=== PATIENT | female | born 1975 | race Caucasian/White ===

== ENCOUNTER 2017-10-13 16:57 | Inpatient (IN) | payer BC ==
[2017-10-13] MEDS ORDERED: Misoprostol 200 MCG Tab PO PRN (17:10)
[2017-10-13] MEDS ORDERED: Carboprost Tromethamine 250 MCG/1 ML Amp IM PRN (17:10)
[2017-10-13] MEDS ORDERED: Terbutaline 1 MG/ML SDV SUBCUT PRN (17:10)
[2017-10-13] MEDS ORDERED: Water For Irrigation,Sterile 1,000 ML Container IRR PRN (17:10)
[2017-10-13] MEDS ORDERED: Lidocaine 1% 50 ML MDV INJECT PRN (17:10)
[2017-10-13] MEDS ORDERED: Sodium Chloride 0.9% 2.5 ML Syringe FLUSH PRN (17:10)
[2017-10-13] MEDS ORDERED: Methylergonovine 0.2 MG/1 ML Amp IM PRN (17:10)
[2017-10-13] MEDS ORDERED: Sodium Chloride 0.9% 10 ML Syringe FLUSH PRN (17:10)
[2017-10-13] MEDS ORDERED: Nalbuphine 10 MG/1 ML Vial IVPUSH PRN (17:10)
[2017-10-13] MEDS ORDERED: Oxytocin/0.9 % Sodium Chloride 30 UNIT/500 ML BAG IV SCH (17:15)
[2017-10-13] MEDS ORDERED: Ampicillin 2 GM in Sodium Chloride 0.9% 100 ML IV ONE (17:30)
[2017-10-13] MEDS ORDERED: Misoprostol 25 MCG (1/4 of 100 MCG) Tab PO SCH (18:00)
[2017-10-13] MEDS ORDERED: Misoprostol 25 MCG (1/4 of 100 MCG) Tab VAG SCH (18:00)
[2017-10-13] MEDS: Labetalol 100 MG Tab PO SCH (18:32)
--- NOTE | 2017-10-13 18:48 | PCM.LDHP ---
L&D History of Present Illness - General Date of Service: 10/13/17 Admit Problem/Dx: Patient Status Order with Admit Dx/Problem 10/13/17 17:11 Patient Status [ADT] Routine Admission Diagnosis/Problem Admission Diagnosis/Problem 10/13/17 18:42 42 yo EDC 10/27/2017 38wks today. Gest HTN, Aneg, R-NI, GBS pos. IOL Source of Information: Patient History Limitations: Reports: No Limitations - History of Present Illness Improves with: Reports: None Worsens with: Reports: None Associated Symptoms: Reports: N - Related Data Allergies/Adverse Reactions: Allergies Allergy/AdvReac Type Severity Reaction Status Date / Time No Known Allergies Allergy Verified 10/13/17 17:10 Home Medications: Home Meds Albuterol [Ventolin HFA] 2 puff INH Q6H PRN 09/13/16 [History] Aspirin [Adult Low Dose Aspirin EC] 81 mg PO DAILY 09/13/16 [History] Labetalol [Normodyne] 100 mg PO BID 09/13/16 [History] PNV95/Ferrous Fumarate/FA [ Tablet] 1 tab PO DAILY 09/13/16 [History] Ferrous Gluconate [Iron] 08/11/17 [History] Folic Acid 08/11/17 [History] Past Medical History - Past Health History Medical/Surgical History: Denies Medical/Surgical History HEENT History: Reports: None Cardiovascular History: Reports: Hypertension Respiratory History: Reports: Asthma Other Respiratory History: Exercised induced asthma Gastrointestinal History: Reports: None Genitourinary History: Reports: None 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: Musculoskeletal History: Reports: None Neurological History: Reports: None Psychiatric History: Reports: None Endocrine/Metabolic History: Reports: Obesity/BMI 30+ Hematologic History: Reports: None Immunologic History: Reports: None Oncologic (Cancer) History: Reports: None Dermatologic History: Reports: Seborrheic Dermatitis - Infectious Disease History Infectious Disease History: Reports: Chicken Pox, Measles - Past Surgical History Head Surgeries/Procedures: Reports: None HEENT Surgical History: Reports: None Cardiovascular Surgical History: Reports: None Respiratory Surgical History: Reports: None GI Surgical History: Reports: None Female Surgical History: Reports: None Endocrine Surgical History: Reports: None Neurological Surgical History: Reports: None Musculoskeletal Surgical History: Reports: None Oncologic Surgical History: Reports: None Social & Family History - Family History Family Medical History: Noncontributory - Tobacco Use Smoking Status *Q: Never Smoker - Recreational Drug Use Recreational Drug Use: No Drug Use in Last 12 Months: No H&P Review of Systems - Review of Systems: Review Of Systems: See Below General: Reports: No Symptoms HEENT: Reports: No Symptoms Pulmonary: Reports: No Symptoms Cardiovascular: Reports: No Symptoms Gastrointestinal: Reports: No Symptoms Genitourinary: Reports: No Symptoms Musculoskeletal: Reports: No Symptoms Skin: Reports: No Symptoms Psychiatric: Reports: No Symptoms Neurological: Reports: No Symptoms Hematologic/Lymphatic: Reports: No Symptoms Immunologic: Reports: No Symptoms L&D Exam - Exam Exam: See Below - Vital Signs Vital Signs: Last Vital Signs Temp Pulse 80 10/13/17 18:32 Resp BP 179/83 H 10/13/17 18:32 Pulse Ox Weight: 93.894 kg - OB Specific Movement: Active Heart Tones: Present Heart Rate (FHR) Variability: Moderate (6-25 bmp) Presentation: Vertex - Jorge Score Jorge Score Cervix Position: Midposition Jorge Score Consistency: Soft Jorge Score Effacement: >80% Jorge Score Dilation: 1-2 cm Jorge Score 's Station: -2 Jorge Score Total: 8 - Exam General: Alert, Oriented, Cooperative, Mild Distress Lungs: Normal Respiratory Effort GI/Abdominal Exam: Soft, Non-Tender Rectal Exam: Deferred Genitourinary: Normal bimanual exam Back Exam: Full Range of Motion Extremities: Normal Range of Motion, Non-Tender, No Pedal Edema, Normal Capillary Refill Skin: Warm, Dry, Intact Neurological: Reflexes Equal Bilateral, Normal Gait, Normal Speech, Normal Tone Psychiatric: Alert, Normal Affect, Normal Mood - Patient Data Lab Results Last 24 hrs: Laboratory Results - last 24 hr 10/13/17 Range/Units 17:46 WBC 10.75 (4.0-11.0) K/uL RBC 3.71 L (4.30-5.90) M/uL Hgb 11.2 L (12.0-16.0) g/dL Hct 32.8 L (36.0-46.0) % MCV 88.4 (80.0-98.0) fL MCH 30.2 (27.0-32.0) pg MCHC 34.1 (31.0-37.0) g/dL RDW Std Deviation 44.9 (28.0-62.0) fl RDW Coeff of Caro 14 (11.0-15.0) % Plt Count 235 (150-400) K/uL MPV 9.00 (7.40-12.00) fL Nucleated RBC % 0.0 /100WBC Nucleated RBCs # 0 K/uL Result Diagrams: 10/13/17 17:46 - Problem List (1) Supervision of normal IUP (intrauterine ) in primigravida SNOMED Code(s): 20862635, 055211801, 296923300 ICD Code: Z34.00 - ENCNTR FOR SUPRVSN OF NORMAL FIRST , UNSP TRIMESTER Status: Acute Priority: High Current Visit: Yes Qualifiers: Trimester: third trimester Qualified Code(s): Z34.03 - Encounter for supervision of normal first , third trimester (2) Hypertension affecting in third trimester SNOMED Code(s): 642262778 ICD Code: O16.3 - UNSPECIFIED MATERNAL HYPERTENSION, THIRD TRIMESTER Status : Acute Priority: High Current Visit: Yes (3) AMA (advanced maternal age) primigravida 35+ SNOMED Code(s): 22840870 ICD Code: O09.519 - SUPERVISION OF ELDERLY PRIMIGRAVIDA, UNSPECIFIED TRIMESTER Status: Acute Priority: High Current Visit: Yes Qualifiers: Trimester: third trimester Qualified Code(s): O09.513 - Supervision of elderly primigravida, third trimester Problem List Initiated/Reviewed/Updated: Yes Orders Last 24hrs: Active Orders 24 hr Category Date Time Status Patient Status [ADT] Routine ADT 10/13/17 17:11 Active Bedrest Bathroom Privileges [RC] ASDIRECTED Care 10/13/17 17:11 Active Communication Order [RC] ASDIRECTED Care 10/13/17 17:11 Active Communication Order [RC] ASDIRECTED Care 10/13/17 17:11 Active Communication Order [RC] ASDIRECTED Care 10/13/17 17:11 Active Heart Tones [RC] CONTINUOUS Care 10/13/17 17:11 Active Non Stress Test [RC] PER UNIT ROUTINE Care 10/13/17 17:11 Active May Shower [RC] ASDIRECTED Care 10/13/17 17:11 Active Notify Provider [RC] PRN Care 10/13/17 17:11 Active Notify Provider [RC] PRN Care 10/13/17 17:11 Active Notify Provider [RC] PRN Care 10/13/17 17:11 Active Notify Provider [RC] STAT Care 10/13/17 17:11 Active Oxygen Therapy [RC] ASDIRECTED Care 10/13/17 17:11 Active Up ad Yesenia [RC] ASDIRECTED Care 10/13/17 17:11 Active Vaginal Exam [RC] PRN Care 10/13/17 17:11 Active Vaginal Exam [RC] PRN Care 10/13/17 17:11 Active Vital Signs [RC] PER UNIT ROUTINE Care 10/13/17 17:11 Active Vital Signs [RC] PER UNIT ROUTINE Care 10/13/17 17:11 Active Clear Liquid Diet [DIET] Diet 10/13/17 Dinner Active Regular Diet [DIET] Diet 10/14/17 Breakfast Ordered TYPE AND SCREEN [BBK] Routine Lab 10/13/17 17:46 Received Ampicillin 1 gm Med 10/13/17 21:30 Active Sodium Chloride 0.9% [Normal Saline] 50 ml IV Q4H Butorphanol [Stadol] Med 10/13/17 17:10 Active 1 mg IVPUSH Q1H PRN Carboprost Tromethamine [Hemabate DS] Med 10/13/17 17:10 Active 250 mcg IM ASDIRECTED PRN Labetalol [Normodyne] Med 10/13/17 18:30 Active 100 mg PO BID Lactated Ringers [Ringers, Lactated] 1,000 ml Med 10/13/17 17:15 Active IV ASDIRECTED Lidocaine 1% [Xylocaine 1%] Med 10/13/17 17:10 Active 50 ml INJECT .ONCE PRN Methylergonovine [Methergine] Med 10/13/17 17:10 Active 0.2 mg IM ASDIRECTED PRN Misoprostol [Cytotec] Med 10/13/17 17:10 Active 200 mcg PO .ONCE PRN Misoprostol [Cytotec] Med 10/13/17 18:00 Active 25 mcg PO .ONCE Misoprostol [Cytotec] Med 10/13/17 22:00 Active 25 mcg PO Q4H PRN Misoprostol [Cytotec] Med 10/13/17 18:00 Active 25 mcg VAG .ONCE Misoprostol [Cytotec] Med 10/13/17 22:00 Active 25 mcg VAG Q4H PRN Nalbuphine [Nubain] Med 10/13/17 17:10 Active 10 mg IVPUSH Q1H PRN Oxytocin/0.9 % Sodium Chloride [Oxytocin 30 Unit/500 ML Med 10/13/17 17:15 Active -NS] 30 unit in 500 ml IV TITRATE Sodium Chloride 0.9% [Saline Flush] Med 10/13/17 17:10 Active 10 ml FLUSH ASDIRECTED PRN Sodium Chloride 0.9% [Saline Flush] Med 10/13/17 17:10 Active 2.5 ml FLUSH ASDIRECTED PRN Terbutaline [Brethine] Med 10/13/17 17:10 Active 0.25 mg SUBCUT ASDIRECTED PRN Water For Irrigation,Sterile [Sterile Water for Med 10/13/17 17:10 Active Irrigation] 1,000 ml IRR ASDIRECTED PRN Scalp Electrode [WOMSER] Per Unit Routine Oth 10/13/17 17:11 Ordered Medication Administration Instruction [OM.PC] Q3H Oth 10/13/17 17:15 Ordered Peripheral IV Insertion Adult [OM.PC] Routine Oth 10/13/17 17:11 Ordered Resuscitation Status Routine Resus Stat 10/13/17 17:10 Ordered Medication Orders Butorphanol Tartrate (Stadol) 1 mg IVPUSH Q1H PRN PRN Reason: Pain Carboprost Tromethamine (Hemabate Ds) 250 mcg IM ASDIRECTED PRN PRN Reason: Post Hemorrhage Ampicillin Sodium 1 gm/ Sodium (Chloride) 50 mls @ 100 mls/hr IV Q4H [place] Lactated Ringer's (Ringers, Lactated) 1,000 mls @ 150 mls/hr IV ASDIRECTED [place] Oxytocin/Sodium Chloride (Oxytocin 30 Unit/500 Ml-Ns) 30 unit in 500 mls @ 999 mls/hr IV TITRATE [place] Labetalol HCl (Normodyne) 100 mg PO BID [facility] Last Admin: 10/13/17 18:32 Dose: 100 mg Lidocaine HCl (Xylocaine 1%) 50 ml INJECT .ONCE PRN PRN Reason: Laceration repair Methylergonovine Maleate (Methergine) 0.2 mg IM ASDIRECTED PRN PRN Reason: Post Hemorrhage Misoprostol (Cytotec) 200 mcg PO .ONCE PRN PRN Reason: Post Hemorrhage Misoprostol (Cytotec) 25 mcg VAG .ONCE [place] Misoprostol (Cytotec) 25 mcg VAG Q4H PRN PRN Reason: Cervical Ripening Misoprostol (Cytotec) 25 mcg PO .ONCE [place] Misoprostol (Cytotec) 25 mcg PO Q4H PRN PRN Reason: Cervical Ripening Nalbuphine HCl (Nubain) 10 mg IVPUSH Q1H PRN PRN Reason: Pain (severe 7-10) Sodium Chloride (Saline Flush) 10 ml FLUSH ASDIRECTED PRN PRN Reason: Keep Vein Open Sodium Chloride (Saline Flush) 2.5 ml FLUSH ASDIRECTED PRN PRN Reason: Keep Vein Open Sterile Water (Sterile Water For Irrigation) 1,000 ml IRR ASDIRECTED PRN PRN Reason: delivery Terbutaline Sulfate (Brethine) 0.25 mg SUBCUT ASDIRECTED PRN PRN Reason: Tacysystole Assessment/Plan Comment:: IOL A: 42 yo EDC 10/27/2017 38wks today. Gest HTN, Aneg, R-NI, GBS pos. IOL P: Admit to L&D, cytotec to pitocin, Amp for GBS pos when in labor, aldomet for elevated BP, Anticipate
[2017-10-13] MEDS ORDERED: hydrOXYzine Pamoate 25 MG Cap PO PRN (19:24)
[2017-10-13] MEDS ORDERED: Ampicillin 1 GM in Sodium Chloride 0.9% 50 ML IV SCH (21:30)
[2017-10-13] MEDS ORDERED: Misoprostol 25 MCG (1/4 of 100 MCG) Tab PO PRN (22:00)
[2017-10-13] MEDS ORDERED: Misoprostol 25 MCG (1/4 of 100 MCG) Tab VAG PRN (22:00)
[2017-10-14] MEDS: Lactated Ringers 1,000 ML IV SCH ×2 (01:35→10:42)
[2017-10-14] MEDS ORDERED: Loperamide 2 MG Cap PO PRN (01:45)
[2017-10-14] MEDS: Ondansetron 4 MG/2 ML SDV IVPUSH ONE ×2 (02:00→08:54)
[2017-10-14] MEDS ORDERED: Oxytocin/Lactated Ringers 30 UNIT/500 ML BAG IV SCH (02:00)
[2017-10-14] MEDS: Labetalol 100 MG/20 ML MDV IVPUSH SCH ×2 (02:04→04:34)
[2017-10-14] MEDS ORDERED: Oxytocin/0.9 % Sodium Chloride 30 UNIT/500 ML BAG IV SCH (04:15)
[2017-10-14] MEDS: Butorphanol 1 MG/ML SDV IVPUSH PRN ×2 (08:45→10:07)
[2017-10-14] MEDS ORDERED: Ondansetron 4 MG/2 ML SDV ONE (08:51)
[2017-10-14] MEDS ORDERED: Ampicillin 2 GM AdvVial IV ONE (10:03)
[2017-10-14] MEDS ORDERED: Ropivacaine 0 ML ONE (10:51)
[2017-10-14] MEDS ORDERED: fentaNYL 100 MCG/2 ML SDV ONE ×2 (10:51→11:26)
[2017-10-14] MEDS ORDERED: Ropivacaine 0.2% 2 MG/ML 20 ML SDV ONE (10:51)
[2017-10-14] MEDS ORDERED: Ropivacaine 100 ML ONE (11:27)
--- NOTE | 2017-10-14 11:46 | PCM.PREANE ---
Preanesthetic Assessment - Procedure Proposed Procedure: Labor Epidural analgesia - Anesthesia/Transfusion/Family Hx Anesthesia History: No Prior Anesthesia Family History of Anesthesia Reaction: No Transfusion History: No Prior Transfusion(s) - Review of Systems General: No Symptoms Pulmonary: Wheezing Cardiovascular: Edema (HTN ) Gastrointestinal: No Symptoms Neurological: No Symptoms Other: Reports: None - Physical Assessment NPO Status Date: 10/14/17 NPO Status Time: 11:43 (per policy) Blood Pressure: 189/94 Vital Signs: Last Vital Signs Temp Pulse 80 10/14/17 04:34 Resp BP 189/94 H 10/14/17 04:34 Pulse Ox Height: 5 ft 6 in Weight: 207 lb ASA Class: 2 Mental Status: Alert & Oriented x3 Airway Class: Mallampati = 3 Dentition: Reports: Normal Dentition Thyro-Mental Finger Breadths: 3 Mouth Opening Finger Breadths: 3 ROM/Head Extension: Full Lungs: Clear to Auscultation, Normal Respiratory Effort Cardiovascular: Regular Rate, Regular Rhythm - Lab Values: Laboratory Last Values WBC 10.75 K/uL (4.0-11.0) 10/13/17 17:46 RBC 3.71 M/uL (4.30-5.90) L 10/13/17 17:46 Hgb 11.2 g/dL (12.0-16.0) L 10/13/17 17:46 Hct 32.8 % (36.0-46.0) L 10/13/17 17:46 MCV 88.4 fL (80.0-98.0) 10/13/17 17:46 MCH 30.2 pg (27.0-32.0) 10/13/17 17:46 MCHC 34.1 g/dL (31.0-37.0) 10/13/17 17:46 RDW Std Deviation 44.9 fl (28.0-62.0) 10/13/17 17:46 RDW Coeff of Caro 14 % (11.0-15.0) 10/13/17 17:46 Plt Count 235 K/uL (150-400) 10/13/17 17:46 MPV 9.00 fL (7.40-12.00) 10/13/17 17:46 Nucleated RBC % 0.0 /100WBC 10/13/17 17:46 Nucleated RBCs # 0 K/uL 10/13/17 17:46 Blood Type A NEGATIVE 10/13/17 17:46 Antibody Screen NEGATIVE 10/13/17 17:46 - Allergies Allergies/Adverse Reactions: Allergies Allergy/AdvReac Type Severity Reaction Status Date / Time No Known Allergies Allergy Verified 10/13/17 17:10 - Blood Blood Available: Yes Product(s) Available: PRBC - Anesthesia Plan Pre-Op Medication Ordered: None - Acknowledgements Anesthesia Type Planned: Epidural Pt an Appropriate Candidate for the Planned Anesthesia: Yes Alternatives and Risks of Anesthesia Discussed w Pt/Guardian: Yes Pt/Guardian Understands and Agrees with Anesthesia Plan: Yes PreAnesthesia Questionnaire - Past Health History Medical/Surgical History: Denies Medical/Surgical History HEENT History: Reports: None Cardiovascular History: Reports: Hypertension Respiratory History: Reports: Asthma Other Respiratory History: Exercised induced asthma Gastrointestinal History: Reports: None Genitourinary History: Reports: 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: Musculoskeletal History: Reports: None Neurological History: Reports: None Psychiatric History: Reports: None Endocrine/Metabolic History: Reports: Obesity/BMI 30+ Hematologic History: Reports: None Immunologic History: Reports: None Oncologic (Cancer) History: Reports: None Dermatologic History: Reports: Seborrheic Dermatitis - Infectious Disease History Infectious Disease History: Reports: Chicken Pox, Measles - Past Surgical History Head Surgeries/Procedures: Reports: None HEENT Surgical History: Reports: None Cardiovascular Surgical History: Reports: None Respiratory Surgical History: Reports: None GI Surgical History: Reports: None Female Surgical History: Reports: None Endocrine Surgical History: Reports: None Neurological Surgical History: Reports: None Musculoskeletal Surgical History: Reports: None Oncologic Surgical History: Reports: None - SUBSTANCE USE Smoking Status *Q: Never Smoker Tobacco Use Within Last Twelve Months: No Recreational Drug Use History: No - HOME MEDS Home Medications: Home Meds Albuterol [Ventolin HFA] 2 puff INH Q6H PRN 09/13/16 [History] Aspirin [Adult Low Dose Aspirin EC] 81 mg PO DAILY 09/13/16 [History] Labetalol [Normodyne] 100 mg PO BID 09/13/16 [History] PNV95/Ferrous Fumarate/FA [ Tablet] 1 tab PO DAILY 09/13/16 [History] Ferrous Gluconate [Iron] 08/11/17 [History] Folic Acid 08/11/17 [History] - CURRENT (IN HOUSE) MEDS Current Meds: Current Medications Butorphanol Tartrate (Stadol) 1 mg IVPUSH Q1H PRN PRN Reason: Pain Last Admin: 10/14/17 10:07 Dose: 1 mg Carboprost Tromethamine (Hemabate Ds) 250 mcg IM ASDIRECTED PRN PRN Reason: Post Hemorrhage Ampicillin Sodium 1 gm/ Sodium (Chloride) 50 mls @ 100 mls/hr IV Q4H [place] Lactated Ringer's (Ringers, Lactated) 1,000 mls @ 150 mls/hr IV ASDIRECTED [place] Last Admin: 10/14/17 10:42 Dose: 150 mls/hr Oxytocin/Sodium Chloride (Oxytocin 30 Unit/500 Ml-Ns) 30 unit in 500 mls @ 999 mls/hr IV TITRATE [place] Oxytocin/Sodium Chloride (Oxytocin 30 Unit/500 Ml-Ns) 30 unit in 500 mls @ 2 mls/hr IV TITRATE [place]; 2 MUNITS/MIN PRN Reason: Protocol Last Admin: 10/14/17 04:20 Dose: 2 munits/min, 2 mls/hr Labetalol HCl (Normodyne) 100 mg PO BID [place] Last Admin: 10/13/17 18:32 Dose: 100 mg Lidocaine HCl (Xylocaine 1%) 50 ml INJECT .ONCE PRN PRN Reason: Laceration repair Loperamide HCl (Imodium) 4 mg PO Q6H PRN PRN Reason: Diarrhea Last Admin: 10/14/17 02:08 Dose: 4 mg Methylergonovine Maleate (Methergine) 0.2 mg IM ASDIRECTED PRN PRN Reason: Post Hemorrhage Misoprostol (Cytotec) 200 mcg PO .ONCE PRN PRN Reason: Post Hemorrhage Misoprostol (Cytotec) 25 mcg VAG .ONCE [place] Last Admin: 10/13/17 19:29 Dose: 25 mcg Misoprostol (Cytotec) 25 mcg VAG Q4H PRN PRN Reason: Cervical Ripening Last Admin: 10/14/17 00:03 Dose: 25 mcg Misoprostol (Cytotec) 25 mcg PO .ONCE [place] Last Admin: 10/13/17 19:29 Dose: 25 mcg Misoprostol (Cytotec) 25 mcg PO Q4H PRN PRN Reason: Cervical Ripening Last Admin: 10/14/17 00:04 Dose: 25 mcg Nalbuphine HCl (Nubain) 10 mg IVPUSH Q1H PRN PRN Reason: Pain (severe 7-10) Sodium Chloride (Saline Flush) 10 ml FLUSH ASDIRECTED PRN PRN Reason: Keep Vein Open Sodium Chloride (Saline Flush) 2.5 ml FLUSH ASDIRECTED PRN PRN Reason: Keep Vein Open Sterile Water (Sterile Water For Irrigation) 1,000 ml IRR ASDIRECTED PRN PRN Reason: delivery Terbutaline Sulfate (Brethine) 0.25 mg SUBCUT ASDIRECTED PRN PRN Reason: Tacysystole Discontinued Medications Ampicillin Sodium (Ampicillin) Confirm Administered Dose 2 gm IV .STK-MED ONE Stop: 10/14/17 10:04 Fentanyl (Sublimaze) Confirm Administered Dose 300 mcg .ROUTE .STK-MED ONE Stop: 10/14/17 10:52 Fentanyl (Sublimaze) Confirm Administered Dose 100 mcg .ROUTE .STK-MED ONE Stop: 10/14/17 11:27 Hydroxyzine Pamoate (Vistaril) 50 mg PO ONETIME PRN PRN Reason: Sleep Last Admin: 10/13/17 20:37 Dose: 50 mg Ampicillin Sodium 2 gm/ Sodium (Chloride) 100 mls @ 200 mls/hr IV ONETIME ONE Stop: 10/13/17 17:59 Last Admin: 10/14/17 10:39 Dose: 200 mls/hr Ropivacaine (Naropin 0.2%) Confirm Administered Dose 100 mls @ as directed .ROUTE .STK-MED ONE Stop: 10/14/17 10:52 Ropivacaine (Naropin 0.2%) Confirm Administered Dose 100 mls @ as directed .ROUTE .STK-MED ONE Stop: 10/14/17 11:28 Labetalol HCl (Normodyne) 20 mg IVPUSH Q4H [place] PRN Reason: Protocol Stop: 10/14/17 05:46 Last Admin: 10/14/17 04:34 Dose: 20 mg Ondansetron HCl (Zofran) 4 mg IVPUSH ONETIME ONE Stop: 10/14/17 01:49 Last Admin: 10/14/17 08:54 Dose: 4 mg Ondansetron HCl (Zofran) Confirm Administered Dose 4 mg .ROUTE .ST-MED ONE Stop: 10/14/17 08:52 Ropivacaine (Naropin 0.2%) Confirm Administered Dose 20 ml .ROUTE .[facility]-MED ONE Stop: 10/14/17 10:52
[2017-10-14] MEDS ORDERED: Ibuprofen 800 MG Tab PO PRN (15:21)
[2017-10-14] MEDS ORDERED: oxyCODONE 5 MG Tab PO PRN (15:21)
[2017-10-14] MEDS ORDERED: Docusate Sodium 100 MG Cap PO PRN (15:21)
[2017-10-14] MEDS ORDERED: Benzocaine/Menthol 20%-0.5% Spray 78 GM Cannister TOP PRN (15:21)
[2017-10-14] MEDS ORDERED: Ibuprofen 400 MG Tab PO PRN (15:21)
[2017-10-14] MEDS ORDERED: Acetaminophen 500 MG Tab PO PRN ×2 (15:21)
[2017-10-14] MEDS ORDERED: Lanolin 100% Cream 7 GM Tube TOP PRN (15:21)
[2017-10-14] MEDS ORDERED: Bisacodyl 10 MG Supp RECTAL PRN (15:21)
[2017-10-14] MEDS ORDERED: Witch Hazel Medicated Pads 40/Jar TOP PRN (15:21)
[2017-10-14] MEDS: Labetalol 100 MG Tab PO SCH (21:52)
--- NOTE | 2017-10-14 22:05 | OR ---
SURGEON: Wisam Sue MD DATE OF PROCEDURE: Hence the patient is 42 years old, she is a primigravida. She is a high-risk patient. She does have high blood pressure and an advanced maternal age. She is followed in the clinic primarily by me. The patient prenatally was doing well. She was on blood pressure medication. She had repeated normal NST. However, yesterday her blood pressure was elevated more than normal and she is 38+ weeks, so a decision is made to admit the patient for induction. The patient responded to the Cytotec and low-dose Pitocin. She progressed without any problem. heart rate was category 1 through the entire process of labor. The patient had epidural anesthesia for labor analgesia. She was able to accomplish normal spontaneous vaginal delivery of a female fetus. score reported to be 6 and 8, and the placenta delivered spontaneous, complete, and intact without any problem. The perineum was intact. There was no perineal or labial laceration. Estimated blood loss in this delivery is 350 mL. There was no complication. OMI / MED /[id number]
--- NOTE | 2017-10-15 10:22 | PCM.DCSUM1 ---
Discharge Summary - Hospital Course Free Text/Narrative:: Discharge home with infant, Follow up in 2 days for BP check and 6 weeks for pp visit. - Discharge Data Discharge Date: 10/15/17 Discharge Disposition: Home, Self-Care 01 Condition: Good - Discharge Diagnosis/Problem(s) (1) Supervision of normal IUP (intrauterine ) in primigravida SNOMED Code(s): 03496158, 561160497, 353145371 ICD Code: Z34.00 - ENCNTR FOR SUPRVSN OF NORMAL FIRST , UNSP TRIMESTER Status: Acute Priority: High Current Visit: Yes Qualifiers: Trimester: third trimester Qualified Code(s): Z34.03 - Encounter for supervision of normal first , third trimester (2) Hypertension affecting in third trimester SNOMED Code(s): 828678417 ICD Code: O16.3 - UNSPECIFIED MATERNAL HYPERTENSION, THIRD TRIMESTER Status : Acute Priority: High Current Visit: Yes (3) AMA (advanced maternal age) primigravida 35+ SNOMED Code(s): 70619311 ICD Code: O09.519 - SUPERVISION OF ELDERLY PRIMIGRAVIDA, UNSPECIFIED TRIMESTER Status: Acute Priority: High Current Visit: Yes Qualifiers: Trimester: third trimester Qualified Code(s): O09.513 - Supervision of elderly primigravida, third trimester - Patient Instructions Diet: Usual Diet as Tolerated Activity: As Tolerated, No Strenuous Activities, Rest and Relax Today Driving: May Drive Today Showering/Bathing: May Shower Notify Provider of: Fever, Increased Pain, Swelling and Redness, Nausea and/or Vomiting Other/Special Instructions: Discharge home with , Follow up in 2 days for BP check and 6 weeks for pp visit. - Discharge Plan Home Medications: Home Meds Albuterol [Ventolin HFA] 2 puff INH Q6H PRN 09/13/16 [History] Aspirin [Adult Low Dose Aspirin EC] 81 mg PO DAILY 09/13/16 [History] Labetalol [Normodyne] 100 mg PO BID 09/13/16 [History] PNV95/Ferrous Fumarate/FA [ Tablet] 1 tab PO DAILY 09/13/16 [History] Ferrous Gluconate [Iron] 08/11/17 [History] Folic Acid 08/11/17 [History] - General Info Date of Service: 10/15/17 Admission Dx/Problem (Free Text: Patient Status Order with Admit Dx/Problem 10/13/17 17:11 Patient Status [ADT] Routine Admission Diagnosis/Problem Admission Diagnosis/Problem 10/13/17 18:42 42 yo EDC 10/27/2017 38wks today. Gest HTN, Aneg, R-NI, GBS pos. IOL Functional Status: Reports: Pain Controlled, Tolerating Diet, Ambulating, Urinating - Review of Systems General: Reports: No Symptoms HEENT: Reports: No Symptoms Pulmonary: Reports: No Symptoms Cardiovascular: Reports: No Symptoms Gastrointestinal: Reports: No Symptoms Genitourinary: Reports: No Symptoms Musculoskeletal: Reports: No Symptoms Skin: Reports: No Symptoms Neurological: Reports: No Symptoms Psychiatric: Reports: No Symptoms - Patient Data Vitals - Most Recent: Last Vital Signs Temp 36.7 C 10/15/17 04:17 Pulse 78 10/15/17 04:17 Resp 18 10/15/17 04:17 BP 144/69 H 10/15/17 04:17 Pulse Ox 97 10/15/17 04:17 Weight - Most Recent: 93.894 kg Lab Results - Last 24 hrs: Laboratory Results - last 24 hr 10/15/17 Range/Units 04:47 Hgb 11.9 L (12.0-16.0) g/dL Hct 35.0 L (36.0-46.0) % Med Orders - Current: Current Medications Acetaminophen (Tylenol Extra Strength) 500 mg PO Q4H PRN PRN Reason: Pain Acetaminophen (Tylenol Extra Strength) 1,000 mg PO Q4H PRN PRN Reason: Pain Benzocaine/Menthol (Dermoplast Pain Relief 20%-0.5% [place]) 78 gm TOP ASDIRECTED PRN PRN Reason: Perineal Comfort Measure Last Admin: 10/14/17 21:53 Dose: 1 can Bisacodyl (Dulcolax) 10 mg RECTAL .ONCE PRN PRN Reason: Constipation Butorphanol Tartrate (Stadol) 1 mg IVPUSH Q1H PRN PRN Reason: Pain Last Admin: 10/14/17 10:07 Dose: 1 mg Carboprost Tromethamine (Hemabate Ds) 250 mcg IM ASDIRECTED PRN PRN Reason: Post Hemorrhage Docusate Sodium (Colace) 100 mg PO BID PRN PRN Reason: Constipation Last Admin: 10/14/17 21:52 Dose: 100 mg Emollient Ointment (Lansinoh Hpa) 0 gm TOP ASDIRECTED PRN PRN Reason: Sore Nipples Ampicillin Sodium 1 gm/ Sodium (Chloride) 50 mls @ 100 mls/hr IV Q4H [facility] Last Admin: 10/14/17 14:10 Dose: 100 mls/hr Lactated Ringer's (Ringers, Lactated) 1,000 mls @ 150 mls/hr IV ASDIRECTED [facility] Last Admin: 10/14/17 10:42 Dose: 150 mls/hr Oxytocin/Sodium Chloride (Oxytocin 30 Unit/500 Ml-Ns) 30 unit in 500 mls @ 999 mls/hr IV TITRATE [place] Oxytocin/Sodium Chloride (Oxytocin 30 Unit/500 Ml-Ns) 30 unit in 500 mls @ 2 mls/hr IV TITRATE [place]; 2 MUNITS/MIN PRN Reason: Protocol Last Admin: 10/14/17 04:20 Dose: 2 munits/min, 2 mls/hr Ibuprofen (Motrin) 400 mg PO Q4H PRN PRN Reason: Pain Ibuprofen (Motrin) 800 mg PO Q6H PRN PRN Reason: Pain Labetalol HCl (Normodyne) 100 mg PO BID [facility] Last Admin: 10/14/17 21:52 Dose: 100 mg Lidocaine HCl (Xylocaine 1%) 50 ml INJECT .ONCE PRN PRN Reason: Laceration repair Loperamide HCl (Imodium) 4 mg PO Q6H PRN PRN Reason: Diarrhea Last Admin: 10/14/17 02:08 Dose: 4 mg Methylergonovine Maleate (Methergine) 0.2 mg IM ASDIRECTED PRN PRN Reason: Post Hemorrhage Misoprostol (Cytotec) 200 mcg PO .ONCE PRN PRN Reason: Post Hemorrhage Misoprostol (Cytotec) 25 mcg VAG .ONCE [facility] Last Admin: 10/13/17 19:29 Dose: 25 mcg Misoprostol (Cytotec) 25 mcg VAG Q4H PRN PRN Reason: Cervical Ripening Last Admin: 10/14/17 00:03 Dose: 25 mcg Misoprostol (Cytotec) 25 mcg PO .ONCE [facility] Last Admin: 10/13/17 19:29 Dose: 25 mcg Misoprostol (Cytotec) 25 mcg PO Q4H PRN PRN Reason: Cervical Ripening Last Admin: 10/14/17 00:04 Dose: 25 mcg Nalbuphine HCl (Nubain) 10 mg IVPUSH Q1H PRN PRN Reason: Pain (severe 7-10) Oxycodone HCl (Oxycodone) 5 mg PO Q2H PRN PRN Reason: Pain Sodium Chloride (Saline Flush) 10 ml FLUSH ASDIRECTED PRN PRN Reason: Keep Vein Open Sodium Chloride (Saline Flush) 2.5 ml FLUSH ASDIRECTED PRN PRN Reason: Keep Vein Open Sterile Water (Sterile Water For Irrigation) 1,000 ml IRR ASDIRECTED PRN PRN Reason: delivery Terbutaline Sulfate (Brethine) 0.25 mg SUBCUT ASDIRECTED PRN PRN Reason: Tacysystole Witch Claudette (Tucks) 1 pad TOP ASDIRECTED PRN PRN Reason: comfort care Last Admin: 10/14/17 21:53 Dose: 1 tub Discontinued Medications Ampicillin Sodium (Ampicillin) Confirm Administered Dose 2 gm IV .STK-MED ONE Stop: 10/14/17 10:04 Fentanyl (Sublimaze) Confirm Administered Dose 300 mcg .ROUTE .STK-MED ONE Stop: 10/14/17 10:52 Fentanyl (Sublimaze) Confirm Administered Dose 100 mcg .ROUTE .STK-MED ONE Stop: 10/14/17 11:27 Hydroxyzine Pamoate (Vistaril) 50 mg PO ONETIME PRN PRN Reason: Sleep Last Admin: 10/13/17 20:37 Dose: 50 mg Ampicillin Sodium 2 gm/ Sodium (Chloride) 100 mls @ 200 mls/hr IV ONETIME ONE Stop: 10/13/17 17:59 Last Admin: 10/14/17 10:39 Dose: 200 mls/hr Ropivacaine (Naropin 0.2%) Confirm Administered Dose 100 mls @ as directed .ROUTE .STK-MED ONE Stop: 10/14/17 10:52 Ropivacaine (Naropin 0.2%) Confirm Administered Dose 100 mls @ as directed .ROUTE .STK-MED ONE Stop: 10/14/17 11:28 Labetalol HCl (Normodyne) 20 mg IVPUSH Q4H [place] PRN Reason: Protocol Stop: 10/14/17 05:46 Last Admin: 10/14/17 04:34 Dose: 20 mg Ondansetron HCl (Zofran) 4 mg IVPUSH ONETIME ONE Stop: 10/14/17 01:49 Last Admin: 10/14/17 08:54 Dose: 4 mg Ondansetron HCl (Zofran) Confirm Administered Dose 4 mg .ROUTE .STK-MED ONE Stop: 10/14/17 08:52 Ropivacaine (Naropin 0.2%) Confirm Administered Dose 20 ml .ROUTE .STK-MED ONE Stop: 10/14/17 10:52 - Exam General: Reports: Alert, Oriented, Cooperative, No Acute Distress Lungs: Reports: Normal Respiratory Effort GI/Abdominal Exam: Soft, Non-Tender, No Distention (Female) Exam: Vaginal Bleeding Rectal (Female) Exam: Deferred Back Exam: Reports: Full Range of Motion Extremities: Normal Range of Motion, Non-Tender, No Pedal Edema, Normal Capillary Refill Skin: Reports: Warm, Dry, Intact Wound/Incisions: Reports: Healing Well Neurological: Reports: No New Focal Deficit, Normal Speech, Normal Tone Psy/Mental Status: Reports: Alert, Normal Affect, Normal Mood *Q Meaningful Use (DIS) - VTE *Q VTE Criteria *Q: - Stroke *Q Stroke Criteria *Q: - AMI *Q AMI Criteria *Q:
--- NOTE | 2017-10-15 11:28 | PCM48HPAN ---
Post Anesthesia Note - EVALUATION WITHIN 48HRS OF ANESTHETIC Vital Signs in Normal Range: Yes Patient Participated in Evaluation: Yes Respiratory Function Stable: Yes Airway Patent: Yes Cardiovascular Function Stable: Yes Hydration Status Stable: Yes Pain Control Satisfactory: Yes Nausea and Vomiting Control Satisfactory: Yes Mental Status Recovered: Yes
[2017-10-15] MEDS: Labetalol 100 MG Tab PO SCH ×2 (14:13→21:50)
--- NOTE | 2017-10-16 07:01 | PCM.DCSUM1 ---
Discharge Summary - Hospital Course Free Text/Narrative:: Discharge home with infant, Follow up in 6 weeks for post exam. - Discharge Data Discharge Date: 10/16/17 Discharge Disposition: Home, Self-Care 01 Condition: Good - Discharge Diagnosis/Problem(s) (1) Supervision of normal IUP (intrauterine ) in primigravida SNOMED Code(s): 47074186, 170777621, 796302272 ICD Code: Z34.00 - ENCNTR FOR SUPRVSN OF NORMAL FIRST , UNSP TRIMESTER Status: Acute Priority: High Current Visit: Yes Qualifiers: Trimester: third trimester Qualified Code(s): Z34.03 - Encounter for supervision of normal first , third trimester (2) Hypertension affecting in third trimester SNOMED Code(s): 084277402 ICD Code: O16.3 - UNSPECIFIED MATERNAL HYPERTENSION, THIRD TRIMESTER Status : Acute Priority: High Current Visit: Yes (3) AMA (advanced maternal age) primigravida 35+ SNOMED Code(s): 66693790 ICD Code: O09.519 - SUPERVISION OF ELDERLY PRIMIGRAVIDA, UNSPECIFIED TRIMESTER Status: Acute Priority: High Current Visit: Yes Qualifiers: Trimester: third trimester Qualified Code(s): O09.513 - Supervision of elderly primigravida, third trimester (4) (normal spontaneous vaginal delivery) SNOMED Code(s): 98256252 ICD Code: O80 - ENCOUNTER FOR FULL-TERM UNCOMPLICATED DELIVERY Status: Acute Priority: High Current Visit: Yes - Patient Instructions Diet: Usual Diet as Tolerated Activity: As Tolerated, No Strenuous Activities, Rest and Relax Today Driving: May Drive Today Showering/Bathing: May Shower Notify Provider of: Fever, Increased Pain, Swelling and Redness, Nausea and/or Vomiting Other/Special Instructions: Discharge home with , Follow up in 2 days for BP check and 6 weeks for pp visit. - Discharge Plan Home Medications: Home Meds Albuterol [Ventolin HFA] 2 puff INH Q6H PRN 09/13/16 [History] Aspirin [Adult Low Dose Aspirin EC] 81 mg PO DAILY 09/13/16 [History] Labetalol [Normodyne] 100 mg PO BID 09/13/16 [History] PNV95/Ferrous Fumarate/FA [ Tablet] 1 tab PO DAILY 09/13/16 [History] Ferrous Gluconate [Iron] 08/11/17 [History] Folic Acid 08/11/17 [History] - General Info Date of Service: 10/16/17 Admission Dx/Problem (Free Text: Patient Status Order with Admit Dx/Problem 10/13/17 17:11 Patient Status [ADT] Routine Admission Diagnosis/Problem Admission Diagnosis/Problem 10/13/17 18:42 42 yo EDC 10/27/2017 38wks today. Gest HTN, Aneg, R-NI, GBS pos. IOL Functional Status: Reports: Pain Controlled, Tolerating Diet, Ambulating, Urinating - Review of Systems General: Reports: No Symptoms HEENT: Reports: No Symptoms Pulmonary: Reports: No Symptoms Cardiovascular: Reports: No Symptoms Gastrointestinal: Reports: No Symptoms Genitourinary: Reports: No Symptoms Musculoskeletal: Reports: No Symptoms Skin: Reports: No Symptoms Neurological: Reports: No Symptoms Psychiatric: Reports: No Symptoms - Patient Data Vitals - Most Recent: Last Vital Signs Temp 36.6 C 10/16/17 04:00 Pulse 88 10/16/17 04:00 Resp 18 10/16/17 04:00 BP 141/73 H 10/16/17 04:00 Pulse Ox 97 10/16/17 04:00 Weight - Most Recent: 93.894 kg Med Orders - Current: Current Medications Acetaminophen (Tylenol Extra Strength) 500 mg PO Q4H PRN PRN Reason: Pain Acetaminophen (Tylenol Extra Strength) 1,000 mg PO Q4H PRN PRN Reason: Pain Benzocaine/Menthol (Dermoplast Pain Relief 20%-0.5% [place]) 78 gm TOP ASDIRECTED PRN PRN Reason: Perineal Comfort Measure Last Admin: 10/14/17 21:53 Dose: 1 can Bisacodyl (Dulcolax) 10 mg RECTAL .ONCE PRN PRN Reason: Constipation Butorphanol Tartrate (Stadol) 1 mg IVPUSH Q1H PRN PRN Reason: Pain Last Admin: 10/14/17 10:07 Dose: 1 mg Carboprost Tromethamine (Hemabate Ds) 250 mcg IM ASDIRECTED PRN PRN Reason: Post Hemorrhage Docusate Sodium (Colace) 100 mg PO BID PRN PRN Reason: Constipation Last Admin: 10/14/17 21:52 Dose: 100 mg Emollient Ointment (Lansinoh Hpa) 0 gm TOP ASDIRECTED PRN PRN Reason: Sore Nipples Last Admin: 10/15/17 14:17 Dose: 7 gm Ampicillin Sodium 1 gm/ Sodium (Chloride) 50 mls @ 100 mls/hr IV Q4H [facility] Last Admin: 10/14/17 14:10 Dose: 100 mls/hr Lactated Ringer's (Ringers, Lactated) 1,000 mls @ 150 mls/hr IV ASDIRECTED [facility] Last Admin: 10/14/17 10:42 Dose: 150 mls/hr Oxytocin/Sodium Chloride (Oxytocin 30 Unit/500 Ml-Ns) 30 unit in 500 mls @ 999 mls/hr IV TITRATE [place] Oxytocin/Sodium Chloride (Oxytocin 30 Unit/500 Ml-Ns) 30 unit in 500 mls @ 2 mls/hr IV TITRATE [place]; 2 MUNITS/MIN PRN Reason: Protocol Last Admin: 10/14/17 04:20 Dose: 2 munits/min, 2 mls/hr Ibuprofen (Motrin) 400 mg PO Q4H PRN PRN Reason: Pain Ibuprofen (Motrin) 800 mg PO Q6H PRN PRN Reason: Pain Last Admin: 10/15/17 14:15 Dose: 800 mg Labetalol HCl (Normodyne) 100 mg PO BID [facility] Last Admin: 10/15/17 21:50 Dose: 100 mg Lidocaine HCl (Xylocaine 1%) 50 ml INJECT .ONCE PRN PRN Reason: Laceration repair Loperamide HCl (Imodium) 4 mg PO Q6H PRN PRN Reason: Diarrhea Last Admin: 10/14/17 02:08 Dose: 4 mg Methylergonovine Maleate (Methergine) 0.2 mg IM ASDIRECTED PRN PRN Reason: Post Hemorrhage Misoprostol (Cytotec) 200 mcg PO .ONCE PRN PRN Reason: Post Hemorrhage Misoprostol (Cytotec) 25 mcg VAG .ONCE [facility] Last Admin: 10/13/17 19:29 Dose: 25 mcg Misoprostol (Cytotec) 25 mcg VAG Q4H PRN PRN Reason: Cervical Ripening Last Admin: 10/14/17 00:03 Dose: 25 mcg Misoprostol (Cytotec) 25 mcg PO .ONCE [facility] Last Admin: 10/13/17 19:29 Dose: 25 mcg Misoprostol (Cytotec) 25 mcg PO Q4H PRN PRN Reason: Cervical Ripening Last Admin: 10/14/17 00:04 Dose: 25 mcg Nalbuphine HCl (Nubain) 10 mg IVPUSH Q1H PRN PRN Reason: Pain (severe 7-10) Oxycodone HCl (Oxycodone) 5 mg PO Q2H PRN PRN Reason: Pain Sodium Chloride (Saline Flush) 10 ml FLUSH ASDIRECTED PRN PRN Reason: Keep Vein Open Sodium Chloride (Saline Flush) 2.5 ml FLUSH ASDIRECTED PRN PRN Reason: Keep Vein Open Sterile Water (Sterile Water For Irrigation) 1,000 ml IRR ASDIRECTED PRN PRN Reason: delivery Terbutaline Sulfate (Brethine) 0.25 mg SUBCUT ASDIRECTED PRN PRN Reason: Tacysystole Witch [place]ette (Tucks) 1 pad TOP ASDIRECTED PRN PRN Reason: comfort care Last Admin: 10/14/17 21:53 Dose: 1 tub Discontinued Medications Ampicillin Sodium (Ampicillin) Confirm Administered Dose 2 gm IV .STK-MED ONE Stop: 10/14/17 10:04 Fentanyl (Sublimaze) Confirm Administered Dose 300 mcg .ROUTE .STK-MED ONE Stop: 10/14/17 10:52 Fentanyl (Sublimaze) Confirm Administered Dose 100 mcg .ROUTE .STK-MED ONE Stop: 10/14/17 11:27 Hydroxyzine Pamoate (Vistaril) 50 mg PO ONETIME PRN PRN Reason: Sleep Last Admin: 10/13/17 20:37 Dose: 50 mg Ampicillin Sodium 2 gm/ Sodium (Chloride) 100 mls @ 200 mls/hr IV ONETIME ONE Stop: 10/13/17 17:59 Last Admin: 10/14/17 10:39 Dose: 200 mls/hr Ropivacaine (Naropin 0.2%) Confirm Administered Dose 100 mls @ as directed .ROUTE .STK-MED ONE Stop: 10/14/17 10:52 Ropivacaine (Naropin 0.2%) Confirm Administered Dose 100 mls @ as directed .ROUTE .STK-MED ONE Stop: 10/14/17 11:28 Labetalol HCl (Normodyne) 20 mg IVPUSH Q4H [place] PRN Reason: Protocol Stop: 10/14/17 05:46 Last Admin: 10/14/17 04:34 Dose: 20 mg Ondansetron HCl (Zofran) 4 mg IVPUSH ONETIME ONE Stop: 10/14/17 01:49 Last Admin: 10/14/17 08:54 Dose: 4 mg Ondansetron HCl (Zofran) Confirm Administered Dose 4 mg .ROUTE .STK-MED ONE Stop: 10/14/17 08:52 Ropivacaine (Naropin 0.2%) Confirm Administered Dose 20 ml .ROUTE .STK-MED ONE Stop: 10/14/17 10:52 - Exam General: Reports: Alert, Oriented, Cooperative, No Acute Distress Lungs: Reports: Normal Respiratory Effort GI/Abdominal Exam: Soft, Non-Tender (Female) Exam: Vaginal Bleeding Rectal (Female) Exam: Deferred Back Exam: Reports: Full Range of Motion Extremities: Normal Range of Motion, Non-Tender, No Pedal Edema, Normal Capillary Refill Skin: Reports: Warm, Dry, Intact Wound/Incisions: Reports: Healing Well Neurological: Reports: No New Focal Deficit, Normal Speech, Normal Tone Psy/Mental Status: Reports: Alert, Normal Affect, Normal Mood *Q Meaningful Use (DIS) - VTE *Q VTE Criteria *Q: - Stroke *Q Stroke Criteria *Q: - AMI *Q AMI Criteria *Q:
[2017-10-16] MEDS: Labetalol 100 MG Tab PO SCH (10:17)
[2017-10-16 17:12] VITALS: BP 187/81
== END 2017-10-16 12:45 | disposition home or self-care (01) | DRG 560 ==
LOC: MW.OBCHECK 16:57 → MW.OB 16:58 → MW.OBCHECK 17:11 → MW.OB 17:38 → OBSVTOIN 10-14 15:21
PROVIDERS: ADMIT Obstetrics & Gynecology; ATTEND Obstetrics & Gynecology
PROC: 10E0XZZ Delivery of Products of Conception, External Approach (ICD-10-PCS; principal; 2017-10-14)
PROC: 3E0P7VZ Introduction of Hormone into Female Reproductive, Via Natural or Artificial Opening (ICD-10-PCS; 2017-10-14)
PROC: 10907ZC Drainage of Amniotic Fluid, Therapeutic from Products of Conception, Via Natural or Artificial Opening (ICD-10-PCS; 2017-10-14)
PROC: 3E033VJ Introduction of Other Hormone into Peripheral Vein, Percutaneous Approach (ICD-10-PCS; 2017-10-14)
DX: O13.4 Gestational [pregnancy-induced] hypertension without significant proteinuria, complicating childbirth (principal); O09.513 Supervision of elderly primigravida, third trimester; Z3A.38 38 weeks gestation of pregnancy; Z37.0 Single live birth
CPT/HCPCS: 36415; 51702; 59025; 59409; 85014; 85018; 85027; 86850; 86900; 86901; A9270-GY; J0290; J0595; J2405; J2590; J7030; J7050; J7120